=== PATIENT | male | born 1985 | race Caucasian/White ===

== ENCOUNTER 2016-05-30 19:59 | Emergency (ER) | payer SELFPAY ==
[2016-05-30 20:14] VITALS: BP 129/82
--- NOTE | 2016-05-30 21:02 | EDM.PDOC ---
ED HPI Trauma - General Chief Complaint: Upper Extremity Injury/Pain Stated Complaint: REINJURED AN INJURY Time Seen by Provider: 05/30/16 21:01 Source: Reports: Patient, Family History Limitations: Reports: No limitations - History of Present Illness INITIAL COMMENTS - FREE TEXT/NARRATIVE: pt arrived with a painful rt shoulder. He slipped and in order to prevent falling he grabbed a part of a tractor. This happened several weeks ago. He is taking a job and is wondering what he should do for the shoulder. he has alot of pain when he lifts the arm and when he goes backward. with the arm. He does have a little tingling in the hand at times. Occurred When: other ( several weeks ago. ) Method of Injury: other (pt slipped and had a pulling injury to the shoulder. ) Severity: mild Pain/Injury Location: Reports: upper extremity, right Consciousness: Reports: no loss of consciousness Associated Symptoms: Reports: denies other symptoms Allergies/ADRs: Allergies No Known Allergies Allergy (Verified 01/24/15 10:07) Home Medications: Ambulatory Orders NK [No Known Home Meds] 01/31/14 [Confirmed 05/30/16] Past Medical History HEENT History: Reports: Impaired vision Other HEENT History: wear glasses Other Respiratory History: had some kind of a chest infection 3 yrs ago from breathing in some chemicals out in the oil [place] and got fluid on his lungs from it. 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 Social & Family History - Tobacco Use Smoking Status *Q: Never Smoker Second Hand Smoke Exposure: Yes - Caffeine Use Caffeine Use: Reports: Energy drinks - Alcohol Use Days Per Week of Alcohol Use: 0 - Recreational Drug Use Recreational Drug Use: No Review of Systems - Review of Systems Review Of Systems: See Below Constitutional: Reports: no symptoms Eyes: Reports: no symptoms Ears: Reports: no symptoms Nose: Reports: no symptoms Mouth/Throat: Reports: no symptoms Respiratory: Reports: no symptoms Cardiovascular: Reports: no symptoms GI/Abdominal: Reports: No symptoms Genitourinary: Reports: no symptoms Musculoskeletal: Reports: other (pain in the rt shoulder. ) Trauma Exam - Physical Exam Exam: See Below Text/Narrative:: pt is very tender over the upper shoulder anteriorly an ant to the a-c joint. He is not real tender over the ac joint. He is uncomfortabl when he lifts his arm. Exam Limited By: No limitations General Appearance: Reports: alert, mild distress Head: Reports: atraumatic Eyes: bilateral eye: EOMI, normal inspection, PERRL Ears: Reports: normal TMs Nose: Reports: normal inspection Throat/Mouth: Reports: Normal inspection Neck: Reports: non-tender Respiratory Exam: Reports: no respiratory distress Cardiovascular: Reports: regular rate, rhythm Extremities: Reports: other ( rt shoulder is tender over the upper part of the shoulder. He is very uncomfortable when he lifts his arm. He is feeling weaker in the arm. ) Course - Vital Signs Last Recorded V/S: Last Vital Signs Temp 36.1 C 05/30/16 20:30 Pulse 70 05/30/16 20:12 Resp 16 05/30/16 20:12 BP 129/82 05/30/16 20:12 Pulse Ox 96 05/30/16 20:12 - Orders/Labs/Meds Orders: Active Orders 24 hr Category Date Time Status Shoulder Comp Rt [CR] Stat Exams 05/30/16 21:00 Taken - Re-Assessments/Exams Free Text/Narrative Re-Assessment/Exam: 05/30/16 22:00 pt had an xray which did not show any paula abnormality Departure - Departure Time of Disposition: 22:01 Disposition: Home, Self-Care 01 Condition: fair Clinical Impression: Right shoulder injury Forms: ED Department Discharge Care Plan Goals: moist warm packs to the shoulder, ortho appt in next 2 days. flexeril 10mg hs , motrin 600mg tid - My Orders Last 24 Hours: My Active Orders 05/30/16 21:00 Shoulder Comp Rt [CR] Stat - Assessment/Plan Last 24 Hours: My Active Orders 05/30/16 21:00 Shoulder Comp Rt [CR] Stat
--- NOTE | 2016-05-31 08:51 | CR ---
Mild AC joint hypertrophy. No fracture.
== END 2016-05-30 22:09 | disposition home or self-care (01) ==
LOC: JP.ED 19:59
DX: S49.91XA Unspecified injury of right shoulder and upper arm, initial encounter (principal); X58.XXXA Exposure to other specified factors, initial encounter
CPT/HCPCS: 73030-26-RT; 73030-RT; 99283; 99284

== ENCOUNTER 2020-03-24 13:09 | Emergency (ER) | payer MEDICAID ==
[2020-03-24 13:21] VITALS: BP 145/55; PULSE 82
[2020-03-24] MEDS ORDERED: LORazepam 1 MG Tab PO ONE (13:38)
--- NOTE | 2020-03-24 13:43 | EDM.PDOC ---
ED HPI GENERAL MEDICAL PROBLEM - General Chief Complaint: Chest Pain Stated Complaint: COVID? Time Seen by Provider: 03/24/20 13:32 Source of Information: Reports: Patient, RN Notes Reviewed History Limitations: Reports: No Limitations - History of Present Illness INITIAL COMMENTS - FREE TEXT/NARRATIVE: 34-year-old gentleman presents emergency department with a complaint of chest pain and shortness of breath, he did have an exposure to Covid 2 days prior also he explains headache he describes an ice pick type headache worst headache he has ever had in his life all the symptoms started about 2 hours prior he has no known cardiac history. Chest Pain Score (Numeric/FACES): 10 - Related Data Allergies Allergy/AdvReac Type Severity Reaction Status Date / Time No Known Allergies Allergy Verified 01/24/15 10:07 Home Meds: Home Meds NK [No Known Home Meds] 01/31/14 [History] Past Medical History HEENT History: Reports: Impaired Vision Other HEENT History: wear glasses Other Respiratory History: had some kind of a chest infection 3 yrs ago from breathing in some chemicals out in the oil [place] and got fluid on his lungs from it. 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 Social & Family History - Tobacco Use Tobacco Use Status *Q: Never Tobacco User - Caffeine Use Caffeine Use: Reports: None - Recreational Drug Use Recreational Drug Use: No ED ROS GENERAL - Review of Systems Review Of Systems: See Below Constitutional: Reports: No Symptoms HEENT: Reports: No Symptoms Respiratory: Reports: Shortness of Breath Cardiovascular: Reports: Chest Pain GI/Abdominal: Reports: Nausea : Reports: No Symptoms Musculoskeletal: Reports: No Symptoms Skin: Reports: No Symptoms Neurological: Reports: Headache ED EXAM, GENERAL - Physical Exam Exam: See Below Exam Limited By: No Limitations General Appearance: Alert, Anxious, Mild Distress Eye Exam: Bilateral Eye: Normal Inspection Respiratory/Chest: No Respiratory Distress, Lungs Clear, Normal Breath Sounds, No Accessory Muscle Use, Chest Non-Tender Cardiovascular: Regular Rate, Rhythm, No Murmur GI/Abdominal: Soft, Non-Tender Course - Vital Signs Last Recorded V/S: Last Vital Signs Temp 96.8 F L 03/24/20 13:20 Pulse 82 03/24/20 13:20 Resp 28 H 03/24/20 13:20 BP 145/55 H 03/24/20 13:20 Pulse Ox 99 03/24/20 13:20 - Orders/Labs/Meds Orders: Active Orders 24 hr Category Date Time Status EKG Documentation Completion [RC] ASDIRECTED Care 03/24/20 13:39 Active Chest 2V [CR] Stat Exams 03/24/20 13:39 Taken Isolation [COMM] Stat Oth 03/24/20 13:38 Ordered EKG 12 Lead [EK] Stat Ther 03/24/20 13:39 Ordered Labs: Laboratory Tests 03/24/20 03/24/20 03/24/20 Range/Units 13:40 13:54 13:54 WBC 6.7 (4.5-11.0) K/uL RBC 4.78 (4.30-5.90) M/uL Hgb 13.8 (12.0-15.0) g/dL Hct 41.3 (40.0-54.0) % MCV 86 (80-98) fL MCH 29 (27-31) pg MCHC 33 (32-36) % Plt Count 268 (150-400) K/uL Neut % (Auto) 70 H (36-66) % Lymph % (Auto) 8 L (24-44) % [place] % (Auto) 20 H (2-6) % Eos % (Auto) 2 (2-4) % Baso % (Auto) 1 (0-1) % D-Dimer, Quantitative 143.64 (0.0-500.0) ng/mL Sodium (140-148) mmol/L Potassium (3.6-5.2) mmol/L Chloride (100-108) mmol/L Carbon Dioxide (21-32) mmol/L Anion Gap (5.0-14.0) mmol/L BUN (7-18) mg/dL Creatinine (0.8-1.3) mg/dL Est Cr Clr Drug Dosing mL/min Estimated GFR (MDRD) (>60) Glucose (74-106) mg/dL Lactic Acid (0.4-2.0) mmol/L Calcium (8.5-10.1) mg/dL Total Bilirubin (0.2-1.0) mg/dL Direct Bilirubin (0.0-0.2) mg/dL Indirect Bilirubin AST (15-37) U/L ALT (12-78) U/L Alkaline Phosphatase (46-116) U/L Lactate Dehydrogenase (85-227) U/L C-Reactive Protein (0.0-0.3) mg/dL Total Protein (6.4-8.2) g/dL Albumin (3.4-5.0) g/dL Globulin (2.3-3.5) g/dL Albumin/Globulin Ratio (1.2-2.2) Procalcitonin ng/mL Influenza Type A RNA Negative (NEGATIVE) Influenza Type B RNA Negative (NEGATIVE) RSV Rapid Negative (NEGATIVE) SARS-CoV-2 RNA ([place]) Positive H (NEGATIVE) 03/24/20 03/24/20 03/24/20 Range/Units 13:54 13:54 13:54 WBC (4.5-11.0) K/uL RBC (4.30-5.90) M/uL Hgb (12.0-15.0) g/dL Hct (40.0-54.0) % MCV (80-98) fL MCH (27-31) pg MCHC (32-36) % Plt Count (150-400) K/uL Neut % (Auto) (36-66) % Lymph % (Auto) (24-44) % [place] % (Auto) (2-6) % Eos % (Auto) (2-4) % Baso % (Auto) (0-1) % D-Dimer, Quantitative (0.0-500.0) ng/mL Sodium 139 L (140-148) mmol/L Potassium 3.5 L (3.6-5.2) mmol/L Chloride 104 (100-108) mmol/L Carbon Dioxide 27 (21-32) mmol/L Anion Gap 11.5 (5.0-14.0) mmol/L BUN 14 (7-18) mg/dL Creatinine 1.2 (0.8-1.3) mg/dL Est Cr Clr Drug Dosing 90.64 mL/min Estimated GFR (MDRD) > 60 (>60) Glucose 84 (74-106) mg/dL Lactic Acid 1.7 (0.4-2.0) mmol/L Calcium 8.9 (8.5-10.1) mg/dL Total Bilirubin 0.6 (0.2-1.0) mg/dL Direct Bilirubin 0.15 (0.0-0.2) mg/dL Indirect Bilirubin 0.45 AST 16 (15-37) U/L ALT 30 (12-78) U/L Alkaline Phosphatase 98 (46-116) U/L Lactate Dehydrogenase 173 (85-227) U/L C-Reactive Protein 0.35 H (0.0-0.3) mg/dL Total Protein 6.9 (6.4-8.2) g/dL Albumin 3.5 (3.4-5.0) g/dL Globulin 3.4 (2.3-3.5) g/dL Albumin/Globulin Ratio 1.0 L (1.2-2.2) Procalcitonin < 0.05 ng/mL Influenza Type A RNA (NEGATIVE) Influenza Type B RNA (NEGATIVE) RSV Rapid (NEGATIVE) SARS-CoV-2 RNA ([place]) (NEGATIVE) Meds: Medications Discontinued Medications Generic Name Dose Route Start Last Admin Trade Name Freq PRN Reason Stop Dose Admin Lorazepam 1 mg 03/24/20 13:38 03/24/20 13:53 Ativan PO 03/24/20 13:39 1 mg ONETIME ONE Administration Departure - Departure Time of Disposition: 15:54 Disposition: Home, Self-Care 01 Condition: Fair Clinical Impression: COVID-19 Instructions: COVID-19, COVID-19: How to Protect Yourself and Others - CDC Referrals: PCP,None [Primary Care Provider] - Forms: ED Department Discharge Additional Instructions: Symptomatic care and self quarantine call return to the emergency department worsening of symptoms Sepsis Event Note (ED) - Evaluation Sepsis Screening Result: No Definite Risk - Focused Exam Vital Signs: Vital Signs Temp Pulse Resp BP Pulse Ox 03/24/20 13:20 96.8 F L 82 28 H 145/55 H 99 - My Orders Last 24 Hours: My Active Orders 03/24/20 13:38 Isolation [COMM] Stat 03/24/20 13:39 EKG Documentation Completion [RC] ASDIRECTED Chest 2V [CR] Stat EKG 12 Lead [EK] Stat - Assessment/Plan Last 24 Hours: My Active Orders 03/24/20 13:38 Isolation [COMM] Stat 03/24/20 13:39 EKG Documentation Completion [RC] ASDIRECTED Chest 2V [CR] Stat EKG 12 Lead [EK] Stat Plan: Assessment Acuity = acute Site and laterality = viral syndrome Etiology = COVID-19 Manifestations = headache, shortness of breath, chest pain Location of injury = Home Lab values = CBC, CMP, troponin, D-dimer, LDH within normal limits positive for COVID-19 negative for influenza negative for RSV chest x-ray shows no acute process, CT scan of the head shows no acute process Plan Symptomatic care and self quarantine This note was dictated using [employer] voice recognition software please call with any questions on syntax or grammar.
[2020-03-24 14:37] LABS: CORONAVIRUS COVID-19 NAA POSITIVE (NEGATIVE)
--- NOTE | 2020-03-24 15:45 | CRLCT ---
INDICATION: Ice-pick headache. COVID positive. TECHNIQUE: Scanning of the head was performed without IV contrast material. Coronal reconstructions were obtained. COMPARISON: None. FINDINGS: No acute hemorrhage, parenchymal attenuation abnormality, or mass effect is demonstrated. Differentiation between the schaefer matter and white matter is preserved. Benign, symmetrical globus pallidus calcifications are noted bilaterally. The ventricles and other subarachnoid spaces are within normal limits. No calvarial abnormality is evident. The visualized paranasal and mastoid sinuses are clear. IMPRESSION: Negative noncontrast head CT. Please note that all CT scans at this facility use dose modulation, iterative reconstruction, and/or weight-based dosing when appropriate to reduce radiation dose to as low as reasonably achievable. Dictated by Juan Quinones MD @ Mar 24 2020 3:41PM Signed by Dr. Juan Quinones @ Mar 24 2020 3:44PM
--- NOTE | 2020-03-25 09:27 | CR ---
CHEST: 2 view CLINICAL HISTORY:SOB COMPARISON:2014 FINDINGS: The heart size, pulmonary vascularity and hilar structures are normal. No infiltrate effusion or pneumothorax is seen. IMPRESSION: No acute cardiopulmonary process.
== END 2020-03-24 16:04 | disposition home or self-care (01) ==
LOC: JP.ED 13:09
DX: U07.1 COVID-19 (principal)
CPT/HCPCS: 0241U; 36415; 70450; 71046; 80048; 80076; 83605; 83615; 84145; 85025; 85379; 86140; 93005; 99285; A9270; 93010

== ENCOUNTER 2021-05-31 17:06 | Emergency (ER) | payer MEDICAID ==
[2021-05-31] MEDS ORDERED: Acetaminophen/oxyCODONE 325-5 MG Tab PO ONE (17:30)
[2021-05-31 17:52] VITALS: BP 143/73; PULSE 82
[2021-05-31] MEDS ORDERED: Bacitracin Oint 1 GM U/D Packet TOP ONE (18:36)
== END 2021-05-31 19:02 | disposition home or self-care (01) ==
LOC: JP.ED 17:06
DX: S62.632A Displaced fracture of distal phalanx of right middle finger, initial encounter for closed fracture (principal); W23.0XXA Caught, crushed, jammed, or pinched between moving objects, initial encounter
CPT/HCPCS: 73130-26-RT; 73130-RT; 99282; 99283-25; A9270-GY

== ENCOUNTER 2021-11-24 10:47 | Emergency (ER) | payer MEDICAID ==
[2021-11-24 11:32] VITALS: BP 135/74; PULSE 80
== END 2021-11-24 12:47 | disposition home or self-care (01) ==
LOC: JP.ED 10:47
DX: S60.032A Contusion of left middle finger without damage to nail, initial encounter (principal); Z86.16 Personal history of COVID-19; W23.1XXA Caught, crushed, jammed, or pinched between stationary objects, initial encounter
CPT/HCPCS: 73140-F2; 73140-F3; 99283

== ENCOUNTER 2022-03-10 20:18 | Emergency (ER) | payer MEDICAID ==
[2022-03-10 20:39] VITALS: BP 143/85; PULSE 70
[2022-03-10] MEDS ORDERED: Ketorolac 10 MG Tab PO ONE (21:05)
== END 2022-03-10 21:51 | disposition home or self-care (01) ==
LOC: JP.ED 20:18
DX: S46.912A Strain of unspecified muscle, fascia and tendon at shoulder and upper arm level, left arm, initial encounter (principal); W18.30XA Fall on same level, unspecified, initial encounter; Y92.009 Unspecified place in unspecified non-institutional (private) residence as the place of occurrence of the external cause
CPT/HCPCS: 99283; A9270